=== PATIENT | male | born 1980 | race Asian ===

== ENCOUNTER 2020-05-29 19:50 | Emergency (ER) | payer BC ==
[~2020-05-29] VITALS: Ht 170.2 cm; Wt 68.0 kg
--- NOTE | 2020-05-29 19:53 | NUR ---
BIBS FOR C/O UPPER ABD PAIN RADIATING TO THE BACK X 4-5 DAYS. REC'D GI COCKTAIL @ [facility] W/ TEMPERORARY RELIEF & ADVISED TO GO TO ER; PT AAOX4, -SOB, NAD NOTED,. VSS, PENDING MD LIM
[2020-05-29 20:32] LABS: BASOPHILS % (AUTO) 0.2 % (0.0-2.0); EOSINOPHILS % (AUTO) 0.7 % (0.0-6.0); HEMATOCRIT 46 % (39-51); HEMOGLOBIN 15.5 g/dL (13.5-17.5); LYMPHOCYTES # (AUTO) 1.3 /CMM (0.8-4.8); LYMPHOCYTES % (AUTO) 15.9 % (20.0-44.0); MEAN CORPUSCULAR HGB CONC 34 g/dl (31.0-36.0); MEAN CORPUSCULAR VOLUME 93 fL (80-96); MONOCYTES # (AUTO) 0.5 /CMM (0.1-1.30); MONOCYTES % (AUTO) 5.9 % (2.0-12.0); NEUTROPHILS # (AUTO) 6.2 /CMM (1.8-8.9); NEUTROPHILS % (AUTO) 77.3 % (43.0-81.0); PLATELET COUNT (AUTO) 282 /CMM (150-450); RED BLOOD CELL COUNT(AUTO) 4.92 MIL/uL (4.5-6.0)
[2020-05-29 20:47] LABS: CALCIUM, SERUM 8.9 mg/dL (8.5-10.1); CREATININE 0.9 mg/dL (0.6-1.3); POTASSIUM 3.4 mmol/L (3.5-5.1)
[2020-05-29 20:52] LABS: BILIRUBIN,DIRECT 0.2 mg/dL (0.0-0.2); BILIRUBIN,TOTAL 0.7 mg/dL (0.2-1.0); TOTAL PROTEIN, SERUM 8.1 g/dL (6.4-8.2)
--- NOTE | 2020-05-29 21:19 | NUR ---
PT WAS TAKEN TO CT
--- NOTE | 2020-05-29 22:09 | NUR ---
Patient discharged to home in stable condition. Written and verbal after care instructions given. Patient verbalizes understanding of instruction. IV removed. Catheter intact and site benign. Pressure and 4x4 applied to site. No bleeding noted.
[2020-05-29 22:16] VITALS: BP 130/75
== END 2020-05-29 22:17 | disposition home or self-care (01) ==
LOC: ER 19:54
DX: R10.13 Epigastric pain (principal)
CPT/HCPCS: 36415; 71045-TC; 80048-TC; 80076-TC; 83690-TC; 84484-TC; 85025-TC